=== PATIENT | female | born 1940 | race Caucasian/White ===

== ENCOUNTER 2016-03-28 14:18 | Emergency (ER) | payer MEDICARE ==
--- NOTE | 2016-03-28 14:58 | ER Document Report ---
ED Medical Screen (RME) - General Chief Complaint: Low Blood Pressure Stated Complaint: BLOOD PRESSURE PROBLEM Mode of Arrival: Wheelchair Information source: Patient Notes: 75-year-old female presents to the emergency department complaining of low blood pressure. Patient reports took her daily scheduled dose of verapamil and metoprolol earlier today. Reports noted blood pressure at home to be low with associated dizziness and upper abdominal pain. States called her tassel snipper and was referred to the ED. I have greeted and performed a rapid initial assessment of this patient. A comprehensive ED assessment and evaluation of the patient, analysis of test results and completion of the medical decision making process will be conducted by additional ED providers. TRAVEL OUTSIDE OF THE [place] IN LAST 30 DAYS: No - Related Data Allergies/Adverse Reactions: No Known Allergies Allergy (Verified 03/28/16 14:48) Past Medical History - Social History Chew tobacco use (# tins/day): No Frequency of alcohol use: Occasional Drug Abuse: None - Past Medical History Cardiac Medical History: Reports: Hx Hypertension, Hx Peripheral Vascular Disease - AAA, Hx Heart Murmur Denies: Hx Coronary Artery Disease, Hx Heart Attack Pulmonary Medical History: Denies: Hx Asthma, Hx Bronchitis, Hx COPD, Hx Pneumonia Neurological Medical History: Denies: Hx Cerebrovascular Accident, Hx Seizures Endocrine Medical History: Reports: Hx Diabetes Mellitus Type 1, Hx Diabetes Mellitus Type 2, Hx Hypothyroidism Renal/ Medical History: Denies: Hx Peritoneal Dialysis GI Medical History: Denies: Hx Hepatitis, Hx Hiatal Hernia, Hx Ulcer Musculoskeltal Medical History: Reports Hx Arthritis Infectious Medical History: Denies: Hx Hepatitis Past Surgical History: Denies: Hx Hysterectomy, Hx Mastectomy, Hx Open Heart Surgery, Hx Pacemaker - Immunizations Hx Diphtheria, Pertussis, Tetanus Vaccination: Yes Physical Exam - Vital signs Vitals: Temp Pulse Resp BP Pulse Ox 98.1 F 46 L 20 84/44 L 97 03/28/16 14:43 03/28/16 14:43 03/28/16 14:43 03/28/16 14:43 03/28/16 14:43 - General General appearance: Alert In distress: None - Respiratory Respiratory status: No respiratory distress - Neurological Neuro grossly intact: Yes Cognition: Normal Orientation: AAOx4 Priyank Coma Scale Eye Opening: Spontaneous Atkinson Coma Scale Verbal: Oriented Atkinson Coma Scale Motor: Obeys Commands Atkinson Coma Scale Total: 15 Speech: Normal Course - Vital Signs Vital signs: Temp Pulse Resp BP Pulse Ox 98.1 F 46 L 20 84/44 L 97 03/28/16 14:43 03/28/16 14:43 03/28/16 14:43 03/28/16 14:43 03/28/16 14:43
[2016-03-28 15:32] LABS: ABSOLUTE EOSINOPHILS # (AUTO) 0.5 10^3/uL (0.0-0.6); ABSOLUTE LYMPHOCYTES (AUTO) 0.8 10^3/uL (0.5-4.7); ABSOLUTE MONOCYTES (AUTO) 0.6 10^3/uL (0.1-1.4); ABSOLUTE NEUT (AUTO) 4.7 10^3/uL (1.7-8.2); BASOPHILS % (AUTO) 0.4 % (0-2); EOSINOPHILS % (AUTO) 7.1 % (0-6); HEMATOCRIT 29.8 % (36.0-47.0); HEMOGLOBIN 9.9 g/dL (12.0-15.5); HGB HCT DIFFERENCE -0.1; LYMPHOCYTES % (AUTO) 12.4 % (13-45); MEAN CORPUSCULAR HEMOGLOBIN 26.6 pg (27.0-33.4); MEAN CORPUSCULAR HGB CONC 33.1 g/dL (32.0-36.0); MEAN CORPUSCULAR VOLUME 80 fl (80-97); MONOCYTES % (AUTO) 9.3 % (3-13); RED BLOOD COUNT 3.71 10^6/uL (3.72-5.28); RED CELL DISTRIBUTION WIDTH 16.7 % (11.5-14.0); SEGMENTED NEUTROPHILS % (AUTO) 70.8 % (42-78); WHITE BLOOD COUNT 6.7 10^3/uL (4.0-10.5)
[2016-03-28 15:51] LABS: ALANINE AMINOTRANSFERASE 43 U/L (9-52); ALBUMIN 3.8 g/dL (3.5-5.0); ALKALINE PHOSPHATASE 97 U/L (38-126); ANION GAP 12 (5-19); ASPARTATE AMINO TRANSFERASE 52 U/L (14-36); BILIRUBIN,TOTAL 0.7 mg/dL (0.2-1.3); BLOOD UREA NITROGEN 25 mg/dL (7-20); CALCIUM 9.3 mg/dL (8.4-10.2); CARBON DIOXIDE 24 mmol/L (22-30); CHLORIDE 102 mmol/L (98-107); CREATINE KINASE 37 U/L (30-135); CREATININE RESULT 1.21 mg/dL (0.52-1.25); GLUCOSE 138 mg/dL (75-110); SODIUM 138.2 mmol/L (137-145); TOTAL PROTEIN 8.4 g/dL (6.3-8.2)
[2016-03-28 16:02] LABS: CREATINE KINASE MB 0.67 ng/mL (<4.55)
[2016-03-28 16:07] LABS: TROPONIN I < 0.012 ng/mL
--- NOTE | 2016-03-28 17:39 | ER Document Report ---
ED General - General Chief Complaint: Low Blood Pressure Stated Complaint: BLOOD PRESSURE PROBLEM Time seen by provider: 17:36 Mode of Arrival: Wheelchair Information source: Patient Notes: This is a 75-year-old female with a hypertension and hypothyroidism who presents to the emergency room after a near syncopal episode with a blood pressure that was low at home (60/47 with a heart rate at 47). Patient states that she's had a history of very high blood pressures and is currently on verapamil and metoprolol. She states that she took the medicine at 8:30 this morning together. She normally will take both of these medicines before eating on an empty stomach. She states that somewhere between noon and 1 PM, she felt dizzy and lightheaded, she checked her blood pressure and the blood pressure was 60/37 and the heart rate was 47. She decided to come to the emergency room. The patient denied any chest pain or shortness of breath. She denies any abdominal pain. Medical problems: Hypertension, hypothyroidism, known AAA (small at 3.7 cm: Just being followed at this point) Allergies: None TRAVEL OUTSIDE OF THE [place] IN LAST 30 DAYS: No - HPI Onset: This morning Onset/Duration: Gradual Quality of pain: No pain Severity: None Pain Level: Denies Associated symptoms: Weakness Exacerbated by: Denies Relieved by: Denies Similar symptoms previously: No Recently seen / treated by doctor: No - Related Data Allergies/Adverse Reactions: No Known Allergies Allergy (Verified 03/28/16 14:48) Past Medical History - General Information source: Patient - Social History Smoking Status: Never Smoker Cigarette use (# per day): No Chew tobacco use (# tins/day): No Frequency of alcohol use: Occasional Drug Abuse: None Lives with: Family Family History: Hypertension Patient has suicidal ideation: No Patient has homicidal ideation: No - Past Medical History Cardiac Medical History: Reports: Hx Hypertension, Hx Peripheral Vascular Disease - AAA, Hx Heart Murmur Denies: Hx Coronary Artery Disease, Hx Heart Attack Pulmonary Medical History: Denies: Hx Asthma, Hx Bronchitis, Hx COPD, Hx Pneumonia Neurological Medical History: Denies: Hx Cerebrovascular Accident, Hx Seizures Endocrine Medical History: Reports: Hx Diabetes Mellitus Type 1, Hx Diabetes Mellitus Type 2, Hx Hypothyroidism Renal/ Medical History: Denies: Hx Peritoneal Dialysis GI Medical History: Denies: Hx Hepatitis, Hx Hiatal Hernia, Hx Ulcer Musculoskeltal Medical History: Reports Hx Arthritis Infectious Medical History: Denies: Hx Hepatitis Past Surgical History: Denies: Hx Hysterectomy, Hx Mastectomy, Hx Open Heart Surgery, Hx Pacemaker - Immunizations Hx Diphtheria, Pertussis, Tetanus Vaccination: Yes Hx Pneumococcal Vaccination: 11/09/14 Review of Systems - Review of Systems Constitutional: denies: Chills, Fever EENT: No symptoms reported Cardiovascular: No symptoms reported Respiratory: No symptoms reported Gastrointestinal: No symptoms reported Genitourinary: No symptoms reported Female Genitourinary: No symptoms reported Musculoskeletal: No symptoms reported Skin: No symptoms reported Hematologic/Lymphatic: No symptoms reported Neurological/Psychological: See HPI Physical Exam - Vital signs Vitals: Temp Pulse Resp BP Pulse Ox 98.1 F 46 L 20 84/44 L 97 03/28/16 14:43 03/28/16 14:43 03/28/16 14:43 03/28/16 14:43 03/28/16 14:43 Notes: Physical exam: GENERAL: HEAD: Atraumatic, normocephalic. EYES: Pupils equal round and reactive to light, extraocular movements intact, sclera anicteric, conjunctiva are normal. ENT: TMs normal, nares patent, oropharynx clear without exudates. Moist mucous membranes. NECK: Normal range of motion, supple without lymphadenopathy or JVD. LUNGS: Breath sounds clear to auscultation bilaterally and equal. No wheezes rales or rhonchi. HEART: Regular rate and rhythm without murmurs, rubs or gallops. ABDOMEN: Soft, normoactive bowel sounds. No tenderness to palpation. No guarding, no rebound. No masses appreciated. EXTREMITIES: Normal range of motion, no pitting or edema. No clubbing or cyanosis. NEUROLOGICAL: Cranial nerves II through XII grossly intact. Normal speech, normal gait. PSYCH: Normal mood, normal affect. SKIN: Warm, Dry, normal turgor, no rashes or lesions noted. Course - Re-evaluation Re-evalutation: 03/28/16 20:45 I discussed case with who knows the patient well. The patient is on verapamil and metoprolol because of IHSS. He recommended taking the patient off for the metoprolol and continuing the verapamil daily in the morning and having the patient check her blood pressures and follow-up on Thursday. I discussed this with her, her and daughter were at the bedside and they 're happy with this plan. Advised her to return to the emergency room for any worsening dizziness and she will be monitoring her blood pressures. - Vital Signs Vital signs: Temp Pulse Resp BP Pulse Ox 98.6 F 61 18 152/61 H 97 03/28/16 18:50 03/28/16 18:50 03/28/16 18:50 03/28/16 18:50 03/28/16 18:50 - Laboratory Result Diagrams: 03/28/16 15:08 03/28/16 15:08 Laboratory results interpreted by me: 03/28/16 03/28/16 15:08 15:08 RBC 3.71 L Hgb 9.9 L Hct 29.8 L MCH 26.6 L RDW 16.7 H Plt Count 123 L Lymphocytes % 12.4 L Eosinophils % 7.1 H BUN 25 H Est GFR ( Amer) 53 L Est GFR (Non-Af Amer) 43 L Glucose 138 H AST 52 H Total Protein 8.4 H - Diagnostic Test Radiology reviewed: Image reviewed, Reports reviewed - Chest x-ray shows minimal atelectasis without infiltrate. Discharge - Discharge Clinical Impression: hypotension Condition: Stable Disposition: HOME, SELF-CARE Additional Instructions: Recommendations As we discussed, I would like you to hold off on taking metoprolol. Continue with the verapamil in the morning. Record your blood pressure for the next week: In the morning, in the afternoon and in the evening. Bring a copy of the recordings to Dr. Sanchez's office. You can let the journalists and other writers know that the ER doctor at spoken to and he wanted just seen in the office He wants to do call the office on Thursday so that you could get scheduled to be seen this coming week. Return to the emergency room for any abdominal pain, chest pain, worsening dizziness or further concerns regarding your blood pressure. Bring a copy of today's labs with you when you see .
--- NOTE | 2016-03-28 18:01 | EKG REPORT ---
SEVERITY:- ABNORMAL ECG - SINUS RHYTHM FIRST DEGREE AV BLOCK CONSIDER LEFT VENTRICULAR HYPERTROPHY : Confirmed by: Bryanna Sotelo 28-Mar-2016 18:00:20
[2016-03-28 19:11] VITALS: BP 152/61
== END 2016-03-28 18:55 | disposition home or self-care (01) ==
LOC: ER 14:18
DX: I95.9 Hypotension, unspecified (principal); R55 Syncope and collapse; E03.9 Hypothyroidism, unspecified; J98.11 Atelectasis; I10 Essential (primary) hypertension; I71.4 Abdominal aortic aneurysm, without rupture; R53.1 Weakness; Z79.899 Other long term (current) drug therapy; E11.9 Type 2 diabetes mellitus without complications
CPT/HCPCS: 36415; 71010; 80053; 82550; 82553; 84484; 85025; 93005; 93010; 99285

== ENCOUNTER → 2016-07-22 | Outpatient (CLI) | payer MEDICARE ==
[2016-07-22 09:31] LABS: CHOLESTEROL 182.01 mg/dL (0-200); Direct HDL 38 mg/dL (>40); TRIGLYCERIDES 119 mg/dL (<150)
[2016-07-22 09:41] LABS: DIRECT LDL 98 mg/dL (<100)
[2016-07-22 13:05] LABS: ANION GAP 10 (5-19); BLOOD UREA NITROGEN 19 mg/dL (7-20); CALCIUM 9.5 mg/dL (8.4-10.2); CARBON DIOXIDE 24 mmol/L (22-30); CHLORIDE 104 mmol/L (98-107); CREATININE RESULT 0.89 mg/dL (0.52-1.25); GLUCOSE 142 mg/dL (75-110); POTASSIUM 4.5 mmol/L (3.6-5.0); SODIUM 138.4 mmol/L (137-145)
== END ==
LOC: OD 08:22
PROVIDERS: ATTEND Internal Medicine Cardiovascular Disease
DX: Z79.899 Other long term (current) drug therapy (principal); R06.02 Shortness of breath; E03.9 Hypothyroidism, unspecified; E78.2 Mixed hyperlipidemia
CPT/HCPCS: 36415; 80048; 80061; 83880; 84443

== ENCOUNTER → 2018-03-16 | Outpatient (CLI) | payer MEDICARE, OTHER ==
[2018-03-16 11:35] LABS: HEMATOCRIT 38.4 % (36.0-47.0); HEMOGLOBIN 13.5 g/dL (12.0-15.5); MEAN CORPUSCULAR HEMOGLOBIN 31.3 pg (27.0-33.4); MEAN CORPUSCULAR HGB CONC 35.2 g/dL (32.0-36.0); MEAN CORPUSCULAR VOLUME 89 fl (80-97); PLATELET COUNT 120 10^3/uL (150-450); RED BLOOD COUNT 4.31 10^6/uL (3.72-5.28); RED CELL DISTRIBUTION WIDTH 15.2 % (11.5-14.0)
[2018-03-16 11:59] LABS: ALANINE AMINOTRANSFERASE 44 U/L (9-52); ALBUMIN 4.5 g/dL (3.5-5.0); ALKALINE PHOSPHATASE 95 U/L (38-126); ANION GAP 11 (5-19); ASPARTATE AMINO TRANSFERASE 59 U/L (14-36); BILIRUBIN,DIRECT 0.3 mg/dL (0.0-0.4); BLOOD UREA NITROGEN 16 mg/dL (7-20); CALCIUM 9.4 mg/dL (8.4-10.2); CARBON DIOXIDE 24 mmol/L (22-30); CHLORIDE 105 mmol/L (98-107); CHOLESTEROL 192.88 mg/dL (0-200); GLUCOSE 96 mg/dL (75-110); POTASSIUM 4.5 mmol/L (3.6-5.0); SODIUM 139.8 mmol/L (137-145); TOTAL PROTEIN 8.7 g/dL (6.3-8.2); TRIGLYCERIDES 246 mg/dL (<150)
[2018-03-16 12:09] LABS: DIRECT LDL 100 mg/dL (<100)
[2018-03-16 12:12] LABS: VLDL CHOLESTEROL 49.2 mg/dL (10-31)
== END ==
LOC: LAB 11:19
PROVIDERS: ATTEND Internal Medicine Cardiovascular Disease
DX: R06.02 Shortness of breath (principal); E78.2 Mixed hyperlipidemia; Z79.899 Other long term (current) drug therapy; L63.0 Alopecia (capitis) totalis
CPT/HCPCS: 36415; 80048; 80061; 80076; 83880; 84443; 85027

== ENCOUNTER → 2018-06-28 | Outpatient (CLI) | payer MEDICARE, OTHER ==
[2018-06-28 13:31] LABS: ALANINE AMINOTRANSFERASE 50 U/L (9-52); ALBUMIN 4.1 g/dL (3.5-5.0); ALKALINE PHOSPHATASE 123 U/L (38-126); ANION GAP 10 (5-19); ASPARTATE AMINO TRANSFERASE 50 U/L (14-36); BILIRUBIN,DIRECT 0.3 mg/dL (0.0-0.4); BILIRUBIN,TOTAL 0.9 mg/dL (0.2-1.3); BLOOD UREA NITROGEN 19 mg/dL (7-20); CALCIUM 9.6 mg/dL (8.4-10.2); CARBON DIOXIDE 24 mmol/L (22-30); CHLORIDE 105 mmol/L (98-107); GLUCOSE 84 mg/dL (75-110); POTASSIUM 4.1 mmol/L (3.6-5.0); SODIUM 138.6 mmol/L (137-145); TOTAL PROTEIN 8.2 g/dL (6.3-8.2)
== END ==
LOC: LAB 12:12
PROVIDERS: ATTEND Internal Medicine Cardiovascular Disease
DX: E03.9 Hypothyroidism, unspecified (principal); E08.6 Diabetes mellitus due to underlying condition with other specified complications; R94.5 Abnormal results of liver function studies; I10 Essential (primary) hypertension; R06.02 Shortness of breath; Z79.899 Other long term (current) drug therapy
CPT/HCPCS: 36415; 80048; 80076; 83036; 83880; 84443

== ENCOUNTER → 2018-11-05 | Outpatient (CLI) | payer MEDICARE, OTHER ==
[2018-11-05 12:39] LABS: ANION GAP 9 (5-19); BLOOD UREA NITROGEN 21 mg/dL (7-20); CARBON DIOXIDE 25 mmol/L (22-30); CHLORIDE 101 mmol/L (98-107); GLUCOSE 120 mg/dL (75-110); POTASSIUM 4.6 mmol/L (3.6-5.0)
== END ==
LOC: LAB 11:58
PROVIDERS: ATTEND Physician Assistant
DX: I10 Essential (primary) hypertension (principal); R06.02 Shortness of breath
CPT/HCPCS: 36415; 80048; 83880

== ENCOUNTER 2019-01-05 15:01 | Emergency (ER) | payer OTHER, MEDICARE ==
[2019-01-05] MEDS ORDERED: ACETAMINOPHEN 325 MG TABLET PO ONE (15:28)
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
[2019-01-05 16:07] VITALS: BP 154/59
== END 2019-01-05 16:07 | disposition home or self-care (01) ==
LOC: ER 15:01
DX: R07.81 Pleurodynia (principal); M54.5 Low back pain; V49.50XA Passenger injured in collision with unspecified motor vehicles in traffic accident, initial encounter; I10 Essential (primary) hypertension; E11.51 Type 2 diabetes mellitus with diabetic peripheral angiopathy without gangrene; Z96.652 Presence of left artificial knee joint; Z96.643 Presence of artificial hip joint, bilateral
CPT/HCPCS: 71046; 99283

== ENCOUNTER 2019-01-11 06:56 | Inpatient (IN) | payer MEDICARE, OTHER ==
[2019-01-11 07:35] LABS: ABSOLUTE BASOPHILS # (AUTO) 0.1 10^3/uL (0.0-0.2); ABSOLUTE MONOCYTES (AUTO) 0.8 10^3/uL (0.1-1.4); ABSOLUTE NEUT (AUTO) 6.6 10^3/uL (1.7-8.2); BASOPHILS % (AUTO) 0.6 % (0-2); EOSINOPHILS % (AUTO) 0.3 % (0-6); HEMATOCRIT 23.2 % (36.0-47.0); HEMOGLOBIN 8.2 g/dL (12.0-15.5); LYMPHOCYTES % (AUTO) 11.7 % (13-45); MEAN CORPUSCULAR HEMOGLOBIN 35.5 pg (27.0-33.4); MEAN CORPUSCULAR HGB CONC 35.4 g/dL (32.0-36.0); MEAN CORPUSCULAR VOLUME 101 fl (80-97); MONOCYTES % (AUTO) 9.6 % (3-13); PLATELET COUNT 167 10^3/uL (150-450); RED BLOOD COUNT 2.31 10^6/uL (3.72-5.28); RED CELL DISTRIBUTION WIDTH 15.9 % (11.5-14.0); SEGMENTED NEUTROPHILS % (AUTO) 77.8 % (42-78); TOTAL CELLS COUNTED % (AUTO) 100 %; WHITE BLOOD COUNT 8.5 10^3/uL (4.0-10.5)
[2019-01-11 07:41] LABS: ALBUMIN 3.3 g/dL (3.5-5.0); ALKALINE PHOSPHATASE 108 U/L (38-126); ANION GAP 12 (5-19); ASPARTATE AMINO TRANSFERASE 58 U/L (14-36); BILIRUBIN,DIRECT 0.2 mg/dL (0.0-0.4); BILIRUBIN,TOTAL 1.1 mg/dL (0.2-1.3); BLOOD UREA NITROGEN 38 mg/dL (7-20); CARBON DIOXIDE 21 mmol/L (22-30); CHLORIDE 103 mmol/L (98-107); GLUCOSE 208 mg/dL (75-110); POTASSIUM 4.5 mmol/L (3.6-5.0); TOTAL PROTEIN 7.4 g/dL (6.3-8.2)
--- NOTE | 2019-01-11 08:14 | ER Document Report ---
ED General - General Chief Complaint: GI Bleeding Stated Complaint: WEAKNESS Time Seen by Provider: 01/11/19 08:11 Mode of Arrival: Ambulatory TRAVEL OUTSIDE OF THE [place] IN LAST 30 DAYS: No - HPI Notes: 78-year-old female with a medical history of hypertension, hypothyroidism and diabetes presents to the emergency room for complaints of sudden onset melena approximately 9 hours ago. Patient reports she was taking baby aspirin, recently stopped taking it two days ago. Patient reports she does have a history of previous GI bleed approximately 1 year ago at [facility], she did receive a colonoscopy and endoscopy at that time. She states was transferred to [place] to have more invasive procedure due to [facility] not being able to find source of bleed. However, [place] could not find the source of bleed then however her GI bleed did resolve itself. Patient denies any new medications foods or travel. Denies any vomiting. denies fevers, chills, chest pain,palpitations, shortn ess of breath, dyspnea, nausea, vomiting abdominal pain, hematuria,blurred vision, double vision, loss of vision, speech changes, LH, dizziness, syncope, headaches, wheezing, ST, URI, neck pain, weakness, bowel or bladder dysfunction, saddle anesthesia, numbness or tingling in bilateral upper or lower extremities equally, muscle paralysis, weakness in bilateral upper or lower extremities equally or rash. - Related Data Allergies/Adverse Reactions: No Known Allergies Allergy (Verified 03/28/16 14:48) Past Medical History - General Information source: Patient, Relative - Social History Smoking Status: Former Smoker Family History: Hypertension Patient has suicidal ideation: No Patient has homicidal ideation: No - Past Medical History Cardiac Medical History: Reports: Hx Hypertension, Hx Peripheral Vascular Disease - AAA, Hx Heart Murmur Denies: Hx Coronary Artery Disease, Hx Heart Attack Pulmonary Medical History: Denies: Hx Asthma, Hx Bronchitis, Hx COPD, Hx Pneumonia Neurological Medical History: Denies: Hx Cerebrovascular Accident, Hx Seizures Endocrine Medical History: Reports: Hx Diabetes Mellitus Type 1, Hx Diabetes Mellitus Type 2, Hx Hypothyroidism Renal/ Medical History: Denies: Hx Peritoneal Dialysis GI Medical History: Denies: Hx Hepatitis, Hx Hiatal Hernia, Hx Ulcer Musculoskeletal Medical History: Reports Hx Arthritis Infectious Medical History: Denies: Hx Hepatitis Past Surgical History: Reports: Hx Orthopedic Surgery - double hip replacement. Denies: Hx Hysterectomy, Hx Mastectomy, Hx Open Heart Surgery, Hx Pacemaker - Immunizations Hx Diphtheria, Pertussis, Tetanus Vaccination: Yes Hx Pneumococcal Vaccination: 11/09/14 Review of Systems - Review of Systems Constitutional: See HPI EENT: No symptoms reported Cardiovascular: No symptoms reported Respiratory: No symptoms reported Gastrointestinal: See HPI Genitourinary: No symptoms reported Female Genitourinary: No symptoms reported Musculoskeletal: No symptoms reported Skin: No symptoms reported Hematologic/Lymphatic: No symptoms reported Neurological/Psychological: No symptoms reported Physical Exam - Vital signs Vitals: Resp 23 H 01/11/19 06:58 Interpretation: Tachycardic - Notes Notes: PHYSICAL EXAMINATION: reviewed vital signs by RN GENERAL: Well-appearing, well-nourished and in no mild distress. HEAD: Atraumatic, normocephalic. EYES: Pupils equal round and reactive to light, extraocular movements intact, conjunctiva are normal. ENT: Nares patent, oropharynx clear without exudates. Moist mucous membranes. NECK: Normal range of motion, supple without lymphadenopathy LUNGS: Breath sounds clear to auscultation bilaterally and equal. No wheezes rales or rhonchi. HEART: Regular rate and rhythm without murmurs ABDOMEN: Soft, nondistended abdomen. Generalized abdominal pain. No guarding, no rebound. No masses appreciated. no cva tenderness bilaterally Female : deferred Musculoskeletal: Normal range of motion, no pitting or edema. No cyanosis. NEUROLOGICAL: Cranial nerves grossly intact. Normal speech, normal gait. Normal sensory, motor exams PSYCH: Normal mood, normal affect. SKIN: Warm, Dry, normal turgor, no rashes or lesions noted. Course - Re-evaluation Re-evalutation: 01/11/19 09:37 Tachycardic afebrile in mild distress due to nausea. IV Zofran has been given. EKG negative for acute STEMI, no ST segment changes to previous EKG. CBC shows a hemoglobin of 8.2 and hematocrit of 23.2, patient does require a blood transfusion, patient's blood type is O Negative, patient is receiving IV hydration as well as started on a protonix drip. Chest x-ray negative for any acute findings, CMP unremarkable, troponin were negative, coags are normal. Patient remains tachycardic with heart rate 130s while receiving IV fluids. CT abdomen pelvis with IV and oral contrast (per request of robot programmer Dr. Garcia for oral at 0850) is pending. Did consult with Dr. Shannan Man, hospitalist, at 0930, he will accept patient to medical service. Pt will go to the stepdown ICU for further management of her anemia, lower GI bleed and blood transfusion. Dr. Garcia, robot programmer, will consult patient inpatient while hospitalist is managing her care. Patient is agreeable with admission and plan of care - Vital Signs Vital signs: Temp Pulse Resp BP Pulse Ox 98.6 F 121 H 20 145/68 H 98 01/11/19 07:04 01/11/19 07:04 01/11/19 10:01 01/11/19 10:01 01/11/19 10:01 - Laboratory Result Diagrams: 01/11/19 07:06 01/11/19 07:06 Laboratory results interpreted by me: 01/11/19 01/11/19 07:06 07:06 RBC 2.31 L Hgb 8.2 L Hct 23.2 L MCV 101 H MCH 35.5 H RDW 15.9 H Lymph % (Auto) 11.7 L Sodium 136.0 L Carbon Dioxide 21 L BUN 38 H Glucose 208 H AST 58 H Albumin 3.3 L Discharge - Discharge Clinical Impression: Acute blood loss anemia, Acute GI bleeding Condition: Stable Disposition: ADMITTED INPATIENT Admitting Provider: Demond (Hospitalist) Unit Admitted: [facility]
[2019-01-11] MEDS ORDERED: ONDANSETRON HCL INJ/PF 4 MG/2 ML SDV IV ONE (08:34)
[2019-01-11] MEDS ORDERED: NORMAL SALINE 1000 ML 1,000 ML IV ONE (08:36)
[2019-01-11 08:53] LABS: INTERNATIONAL RATION (INR) 1.14; PARTIAL THROMBOPLASTIN TIME 29.1 SEC (23.5-35.8); PROTHROMBIN TIME 14.7 SEC (11.4-15.4)
[2019-01-11 09:09] LABS: CREATINE KINASE MB 2.57 ng/mL (<4.55); TROPONIN I 0.012 ng/mL
--- NOTE | 2019-01-11 09:18 | RADIOLOGY REPORT (SQ) ---
EXAM DESCRIPTION: CHEST SINGLE VIEW COMPLETED DATE/TIME: 01/11/2019 9:09 am REASON FOR STUDY: tachycardia COMPARISON: None. EXAM PARAMETERS: NUMBER OF VIEWS: 01/05/2019 TECHNIQUE: Single frontal radiographic view of the chest acquired. RADIATION DOSE: NA LIMITATIONS: None. FINDINGS: LUNGS AND PLEURA: Persistent linear opacity in the left base most likely scar this is been present since 17. MEDIASTINUM AND HILAR STRUCTURES: No masses. Contour normal. HEART AND VASCULAR STRUCTURES: Heart normal in size. Normal vasculature. BONES: No acute findings. HARDWARE: None in the chest. OTHER: No other significant finding. IMPRESSION: NO ACUTE RADIOGRAPHIC FINDING IN THE CHEST. TECHNICAL DOCUMENTATION: JOB ID: [id number] [employer]- All Rights Reserved Reading location - IP/workstation name: [email or web address]
[2019-01-11] MEDS ORDERED: NORMAL SALINE 250 ML IV PRN ×2 (09:30)
[2019-01-11] MEDS: PANTOPRAZOLE SODIUM 40 MG VIAL IV PRN ×2 (10:33→23:45)
[2019-01-11] MEDS ORDERED: GLUCAGON,HUMAN RECOMB 1 MG INJ SUBCUT PRN (10:47)
[2019-01-11] MEDS ORDERED: DEXTROSE 40% GEL 15 GM TUBE PO PRN ×2 (10:47)
[2019-01-11] MEDS ORDERED: DEXTROSE 50%-WATER 25 GM/50 ML DISP.SYRIN IV PRN ×2 (10:47)
[2019-01-11 10:54] LABS: VENOUS BLOOD BASE EXCESS 1.1 mmol/L; VENOUS BLOOD HCO3 24.9 mmol/L (20-32); VENOUS BLOOD PCO2 35.5 mmHg (35-63); VENOUS BLOOD PH 7.46 (7.30-7.42)
--- NOTE | 2019-01-11 11:12 | PDOC H&P ---
History of Present Illness Admission Date/PCP: 01/11/19 09:41 TIMO JIMENEZ DO Patient complains of: Melena History of Present Illness: ISAÍAS GONZALEZ is a 78 year old female with a history of peptic ulcer disease, hypothyroidism, hypertension, who presents to the hospital with complaints of several episodes of melena and some hematochezia this morning. Patient denies any significant abdominal pain. Describes stool as dark tarry little bit of red blood. Denies any NSAID or steroid use. Had recent knee replacement surgery 3 weeks ago but has only been taking oxycodone and Tylenol for this. Of note, patient sees Dr. Garcia and had a upper endoscopy in July 2016 which showed persistent nonhealing gastric ulcer. Patient also reports having an upper and lo wer endoscopy done at [place] 2 years ago. Patient states no intervention was done but was discharged home with some antiacid medication. Patient currently endorses mild lightheadedness earlier but no longer as she is laying flat but denies shortness of breath, chest pain. Admits to some nausea. Past Medical History Cardiac Medical History: Reports: Hypertension, Peripheral Vascular Disease - AAA Denies: Coronary Artery Disease, Myocardial Infarction Pulmonary Medical History: Denies: Asthma, Chronic Obstructive Pulmonary Disease (COPD) Endocrine Medical History: Reports: Hypothyroidism GI Medical History: Denies: Hepatitis, Hiatal Hernia Musculoskeltal Medical History: Reports: Arthritis Hematology: Reports: Anemia Denies: Sickle Cell Disease Past Surgical History Past Surgical History: Reports: Orthopedic Surgery - double hip replacement Social History Information Source: Patient Lives with: Family Smoking Status: Former Smoker Frequency of Alcohol Use: Occasional Hx Recreational Drug Use: No Drugs: None - Advance Directive Resuscitation Status: Full Code Family History Family History: Hypertension Parental Family History Reviewed: Yes Children Family History Reviewed: NA Sibling(s) Family History Reviewed.: NA Medication/Allergy Home Medications: Levothyroxine Sodium [Synthroid 0.112 mg Tablet] 0.112 mg PO Q6AM 01/11/19 Metoprolol Succinate [Toprol Xl 50 mg Tab.sr] 50 mg PO NOON 01/11/19 Trazodone HCl [Desyrel] 100 mg PO QHS 01/11/19 Verapamil HCl [Verapamil ER] 240 mg PO DAILY 01/11/19 Allergies/Adverse Reactions: No Known Allergies Allergy (Verified 03/28/16 14:48) Review of Systems Constitutional: ABSENT: chills, fever(s) Eyes: ABSENT: visual disturbances Nose, Mouth, and Throat: ABSENT: headache(s) Cardiovascular: ABSENT: chest pain Respiratory: PRESENT: cough. ABSENT: dyspnea, hemoptysis Gastrointestinal: PRESENT: nausea. ABSENT: hematemesis Genitourinary: ABSENT: hematuria Musculoskeletal: PRESENT: joint swelling Integumentary: ABSENT: diaphoresis Neurological: ABSENT: confusion, syncope Psychiatric: ABSENT: anxiety Physical Exam Vital Signs: Temp Pulse Resp BP Pulse Ox 98.6 F 121 H 20 145/68 H 98 01/11/19 07:04 01/11/19 07:04 01/11/19 10:01 01/11/19 10:01 01/11/19 10:01 Intake & Output 01/10/19 01/11/19 01/12/19 06:59 06:59 06:59 Weight 77.111 kg General appearance: PRESENT: no acute distress, cooperative, other - Appears very fatigued Head exam: PRESENT: normocephalic Eye exam: PRESENT: conjunctiva pale Neck exam: ABSENT: JVD Respiratory exam: PRESENT: clear to auscultation wiliam, symmetrical, unlabored. ABSENT: tachypnea, wheezes Cardiovascular exam: PRESENT: +S1, +S2, tachycardia. ABSENT: irregular rhythm, systolic murmur Vascular exam: PRESENT: pallor GI/Abdominal exam: PRESENT: ascites, normal bowel sounds, soft, tenderness - Mildly tender. ABSENT: distended, firm, guarding, rebound, rigid Extremities exam: PRESENT: other - Trace lower extremity edema Neurological exam: PRESENT: alert, awake, oriented to person, oriented to place, oriented to time, oriented to situation Results Laboratory Results: 01/11/19 07:06 01/11/19 07:06 01/11/19 01/11/19 07:06 07:06 WBC 8.5 RBC 2.31 L Hgb 8.2 L Hct 23.2 L MCV 101 H MCH 35.5 H MCHC 35.4 RDW 15.9 H Plt Count 167 Seg Neutrophils % 77.8 Sodium 136.0 L Potassium 4.5 Chloride 103 Carbon Dioxide 21 L Anion Gap 12 BUN 38 H Creatinine 0.74 Est GFR ( Amer) > 60 Glucose 208 H Calcium 9.0 Total Bilirubin 1.1 AST 58 H Alkaline Phosphatase 108 Total Protein 7.4 Albumin 3.3 L Lipase 186.8 12/03/19 12/03/19 07:06 07:06 Creatine Kinase 64 CK-MB (CK-2) 2.57 Troponin I 0.012 Impressions: Chest X-Ray 01/11/19 08:39 IMPRESSION: NO ACUTE RADIOGRAPHIC FINDING IN THE CHEST. Assessment and Plan - Diagnosis (1) Acute GI bleeding Is this a current diagnosis for this admission?: Yes Plan: -Likely upper GI bleed and probably secondary to peptic ulcer disease which patient has a known history of -Dr. Garcia has been consulted for an upper endoscopy. -Patient already scheduled for CT abdomen pelvis with contrast -Orthostatic vitals every 4 hours -We will keep n.p.o. for now in case STAT endoscopy is needed -Maintain on Protonix drip (2) Acute blood loss anemia Is this a current diagnosis for this admission?: Yes Plan: -Secondary to upper GI bleed -Hemoglobin dropped from 13.5 in 03/2018 to 8.2 -Transfused 2 units of PRBC stat -Repeat CBC posttransfusion (3) Hypertension Is this a current diagnosis for this admission?: Yes Plan: -BP is currently elevated. We will resume antihypertensives but will monitor closely given patient is at risk of hypotension from hypovolemia. (4) Hypothyroid Is this a current diagnosis for this admission?: Yes Plan: -Continue with Synthroid (5) Tachycardia Is this a current diagnosis for this admission?: Yes Plan: -Secondary to hypovolemia from acute blood loss. -Cardiac monitoring. Will monitor response to IV fluids and blood transfusion. - Time Time Spent with patient: 35 or more minutes
[2019-01-11] MEDS ORDERED: INFLUENZA QUAD (6MOS+) 2019-20 VAC 0.5 ML SYR IM ONE (11:31)
[2019-01-11] MEDS ORDERED: ONDANSETRON HCL INJ/PF 4 MG/2 ML SDV IV PRN (11:44)
[2019-01-11] MEDS ORDERED: ONDANSETRON HCL INJ/PF 4 MG/2 ML SDV ONE ×2 (11:45→16:36)
[2019-01-11] MEDS: DEXTROSE 5%-1/2 NORMAL SALINE 1,000 ML IV PRN ×2 (12:05→23:46)
--- NOTE | 2019-01-11 13:32 | RADIOLOGY REPORT (SQ) ---
EXAM DESCRIPTION: CT ABD/PELVIS WITH IV ORAL COMPLETED DATE/TIME: 01/11/2019 1:04 pm REASON FOR STUDY: GI bleed, oral contrast per GI COMPARISON: None. TECHNIQUE: CT scan of the abdomen and pelvis performed using helical scanning technique with dynamic intravenous contrast injection. Oral contrast. Images reviewed with lung, soft tissue, and bone win dows. Reconstructed coronal and sagittal MPR images reviewed. Delayed images for evaluation of the ur inary system also acquired. All images stored on PACS. All CT scanners at this facility use dose modulation, iterative reconstruction, and/or weight based d osing when appropriate to reduce radiation dose to as low as reasonably achievable (ALARA). [facility]: Dose Right [facility]: CareDose [facility]: Dose Right [facility]: Teradose 4D [facility]: CareerImp CONTRAST TYPE AND DOSE: contrast/concentration: Isovue 350.00 mg/ml; Total Contrast Delivered: 88.0 ml; Total Saline Delivered: 70.0 ml RENAL FUNCTION: BUN 38 creatinine 0.74 RADIATION DOSE: CT Rad equipment meets quality standard of care and radiation dose reduction techniq ues were employed. CTDIvol: 9.6 - 9.6 mGy. DLP: 986 mGy-cm.. LIMITATIONS: Oral contrast precludes identification of intraluminal extravasation of intravenous con trast. FINDINGS: LOWER CHEST: No significant findings. No nodules or infiltrates. LIVER: Normal size. No masses. No dilated ducts. SPLEEN: Splenomegaly with a 13 cm cephalocaudal length. PANCREAS: No masses. No significant calcifications. No adjacent inflammation or peripancreatic fluid collections. Pancreatic duct not dilated. GALLBLADDER: Surgically absent. ADRENAL GLANDS: No significant masses or asymmetry. RIGHT KIDNEY AND URETER: No solid masses. No significant calcifications. No hydronephrosis or hyd roureter. LEFT KIDNEY AND URETER: No solid masses. No significant calcifications. No hydronephrosis or hydr oureter. AORTA AND VESSELS: No aortic aneurysm. 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 RETROPERITONEUM: No retroperitoneal adenopathy, hemorrhage or masses. BOWEL AND PERITONEAL CAVITY: Diverticulosis is distributed throughout the colon. No associated acute inflammation. APPENDIX: Not identified. PELVIS: Evaluation of the pelvis is limited by artifact from bilateral hip prostheses. No obvious pe lvic mass. Calcified uterine fibroid. ABDOMINAL WALL: No masses. No hernias. BONES: Bilateral hip arthroplasties. Degenerative disc disease. Scoliosis. OTHER: No other significant finding. IMPRESSION: 1. There is extensive diverticulosis coli. 2. No definite source of GI bleed is identified. See above. 3. Osseous findings as described. 4. Mild splenomegaly. 5. 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 TECHNICAL DOCUMENTATION: JOB ID: [id number] Quality ID # [id number]: Final reports with documentation of one or more dose reduction techniques (e.g., Au tomated exposure control, adjustment of the mA and/or kV according to patient size, use of iterative reconstruction technique) 2010 [employer]- All Rights Reserved Reading location - IP/workstation name: [email or web address]
--- NOTE | 2019-01-11 13:39 | PDOC CONSULTATION ---
Consultation Consult Date: 01/11/19 Provider Consulted: BETTY LORD Consult reason:: anemia and melena History of Present Illness Admission Date/PCP: 01/11/19 09:41 TIMO JIMENEZ DO History of Present Illness: ISAÍAS GONZALEZ is a 78 year old female patient seen in the past but is now following up with Dr Berry when she was last seen in 2016, patient noted to have persistent non healing gastric ulcer at one of her multiple EGD's she was noted to have H.Pylori it is unclear if she was ever treated she never came back to see me after 2015, but has been in the care of Dr Berry presently she presented with anemia and black stools she is admitted under the Hospitalist service, she will need a repeat EGD prior to that will need stabilization, ? transfusion along with PPI in the past she is a difficult patient for conscious sedation and will need to have Propofol will arrange to have it done in the OR Past Medical History Cardiac Medical History: Reports: Hypertension, Peripheral Vascular Disease - AAA, Heart Murmur Denies: Coronary Artery Disease, Myocardial Infarction Pulmonary Medical History: Denies: Asthma, Bronchitis, Chronic Obstructive Pulmonary Disease (COPD), Pneumonia Neurological Medical History: Denies: Seizures Endocrine Medical History: Reports: Diabetes Mellitus Type 1, Diabetes Mellitus Type 2, Hypothyroidism GI Medical History: Denies: Hepatitis, Hiatal Hernia Musculoskeltal Medical History: Reports: Arthritis Hematology: Reports: Anemia Denies: Sickle Cell Disease Past Surgical History Past Surgical History: Reports: Orthopedic Surgery - double hip replacement Denies: Amputation, Hysterectomy, Mastectomy, Pacemaker Social History Lives with: Family Smoking Status: Former Smoker Frequency of Alcohol Use: Occasional Hx Recreational Drug Use: No Drugs: None - Advance Directive Resuscitation Status: Full Code Family History Family History: Hypertension Parental Family History Reviewed: Yes Children Family History Reviewed: Unknown Sibling(s) Family History Reviewed.: Unknown Medication/Allergy Home Medications: Levothyroxine Sodium [Synthroid 0.112 mg Tablet] 0.112 mg PO Q6AM 01/11/19 Metoprolol Succinate [Toprol Xl 50 mg Tab.sr] 50 mg PO NOON 01/11/19 Trazodone HCl [Desyrel] 100 mg PO QHS 01/11/19 Verapamil HCl [Verapamil ER] 240 mg PO DAILY 01/11/19 Allergies/Adverse Reactions: No Known Allergies Allergy (Verified 03/28/16 14:48) Review of Systems Constitutional: ABSENT: fever(s), headache(s), night sweats, weakness Eyes: ABSENT: visual disturbances Ears: ABSENT: hearing changes Nose, Mouth, and Throat: ABSENT: sore throat Cardiovascular: ABSENT: orthropnea, palpitations Respiratory: ABSENT: dyspnea, hemoptysis Gastrointestinal: PRESENT: melena. ABSENT: hematochezia Genitourinary: ABSENT: dysuria, hematuria Musculoskeletal: ABSENT: deformity, joint swelling Integumentary: ABSENT: pruritus Neurological: ABSENT: syncope, tingling, tremor(s), vertigo Endocrine: ABSENT: polydipsia, polyphagia, polyuria Hematologic/Lymphatic: ABSENT: easy bruising Physical Exam Vital Signs: Temp Pulse Resp BP Pulse Ox 98.7 F 125 H 17 143/66 H 96 01/11/19 11:24 01/11/19 11:24 01/11/19 11:24 01/11/19 11:24 01/11/19 11:24 Intake & Output 01/10/19 01/11/19 01/12/19 06:59 06:59 06:59 Intake Total 1000 Balance 1000 Weight 79.7 kg General appearance: PRESENT: no acute distress, thin Head exam: PRESENT: atraumatic, normocephalic Eye exam: PRESENT: EOMI, PERRLA. ABSENT: nystagmus, periorbital swelling, scleral icterus Mouth exam: PRESENT: moist, neck supple Throat exam: ABSENT: tonsillar exudate, tonsillogmegaly Neck exam: ABSENT: meningismus, thyromegaly Respiratory exam: PRESENT: symmetrical. ABSENT: tachypnea, unlabored, wheezes Cardiovascular exam: PRESENT: RRR, +S1, +S2 GI/Abdominal exam: PRESENT: soft. ABSENT: rebound, rigid, tenderness Extremities exam: ABSENT: joint swelling Musculoskeletal exam: PRESENT: full ROM Neurological exam: PRESENT: oriented to time, oriented to situation, CN II-XII grossly intact Focused psych exam: ABSENT: restlessness Skin exam: PRESENT: normal color. ABSENT: mottled, urticaria, vesicles Results Laboratory Results: 01/11/19 07:06 01/11/19 07:06 01/11/19 01/11/19 01/11/19 07:06 07:06 10:35 WBC 8.5 RBC 2.31 L Hgb 8.2 L Hct 23.2 L MCV 101 H MCH 35.5 H MCHC 35.4 RDW 15.9 H Plt Count 167 Seg Neutrophils % 77.8 VBG pH VBG pCO2 VBG HCO3 VBG Base Excess Sodium 136.0 L Potassium 4.5 Chloride 103 Carbon Dioxide 21 L Anion Gap 12 BUN 38 H Creatinine 0.74 Est GFR ( Amer) > 60 Glucose 208 H Lactic Acid 1.7 Calcium 9.0 Total Bilirubin 1.1 AST 58 H Alkaline Phosphatase 108 Total Protein 7.4 Albumin 3.3 L Lipase 186.8 Blood Type Antibody Screen 01/11/19 01/11/19 10:35 10:35 WBC RBC Hgb Hct MCV MCH MCHC RDW Plt Count Seg Neutrophils % VBG pH 7.46 H VBG pCO2 35.5 VBG HCO3 24.9 VBG Base Excess 1.1 Sodium Potassium Chloride Carbon Dioxide Anion Gap BUN Creatinine Est GFR ( Amer) Glucose Lactic Acid Calcium Total Bilirubin AST Alkaline Phosphatase Total Protein Albumin Lipase Blood Type O NEGATIVE Antibody Screen NEGATIVE 01/11/19 01/11/19 07:06 07:06 Creatine Kinase 64 CK-MB (CK-2) 2.57 Troponin I 0.012 Impressions: Chest X-Ray 01/11/19 08:39 IMPRESSION: NO ACUTE RADIOGRAPHIC FINDING IN THE CHEST. Assessment & Plan - Diagnosis (1) GI bleed Qualifiers: GI bleed type/associated pathology: unspecified gastrointestinal hemorrhage type Qualified Code(s): K92.2 - Gastrointestinal hemorrhage, unspecified Plan: when previously seen , patient had a chronic non healing ulcer that was positive for H.pylori she is seeing another GI physician now as an outpatient she appears to have an upper GI bleeding with melena will need to have EGD done but with Propofol sedation will see if they can accomodate Risks, benefits and alternatives are discussed with the patient in detail further recommendations to follow - Time Time Spent: 50 to 70 Minutes
[2019-01-11] MEDS: METOPROLOL SUCCINATE 50 MG TAB.SR.24H PO SCH (14:01)
[2019-01-11] MEDS: INSULIN LISPRO 100 UNIT/ML 3 ML VIAL SUBCUT SCH ×2 (14:25→17:40)
[2019-01-11] MEDS ORDERED: FENTANYL CITRATE INJ/PF 100 MCG/2 ML AMPUL ONE (16:36)
[2019-01-11] MEDS ORDERED: DIPHENHYDRAMINE HCL 50 MG/ML VIAL ONE (16:36)
[2019-01-11] MEDS ORDERED: FLUMAZENIL INJ 0.5 MG/5 ML VIAL ONE (16:37)
[2019-01-11] MEDS ORDERED: NALOXONE HCL INJ/PF 0.4 MG/1 ML SDV ONE (16:37)
[2019-01-11] MEDS ORDERED: GLUCAGON,HUMAN RECOMB 1 MG INJ ONE (16:37)
[2019-01-11] MEDS ORDERED: EPINEPHRINE INJ 1 MG/10 ML DISP.SYRIN ONE (16:37)
[2019-01-11] MEDS: MIDAZOLAM 2 MG/2 ML INJ ONE ×2 (17:52→18:00)
--- NOTE | 2019-01-11 18:32 | PDOC CONSULTATION ---
Consultation Consult Date: 01/11/19 Provider Consulted: BARBARA ZUÑIGA History of Present Illness Admission Date/PCP: 01/11/19 09:41 TIMO JIMENEZ DO History of Present Illness: ISAÍAS GONZALEZ is a 78 year old female admitted last night with a sudden episode of melena/rectal bleeding at about 1 AM. She has had a few episodes while in the hospital. Her admission hemoglobin was 8.2 and she has since received 1 unit of blood. She denies abdominal pain but has some nausea with no vomiting. Her hemoglobin was 13 in March of this year though she was anemic back in 2016 when she was initially diagnosed with gastric ulcer. Previous colonoscopy in 2016 showed pancolonic diverticulosis. She denies use of NSAIDs. She had a knee surgery recently and has been taking oxycodone. I last saw her in 2016 for iron deficiency anemia. She had a capsule endoscopy in September 2016 that showed some fresh blood in the mid jejunum with no mucosal lesion. I referred her for push enteroscopy at [facility] and this did not yield any definite diagnosis. The EUS was performed for an abnormality noted in the stomach body EUS was unremarkable. Past Medical History Cardiac Medical History: Reports: Hypertension, Peripheral Vascular Disease - AAA, Heart Murmur Denies: Coronary Artery Disease, Myocardial Infarction Pulmonary Medical History: Denies: Asthma, Bronchitis, Chronic Obstructive Pulmonary Disease (COPD), Pneumonia Neurological Medical History: Denies: Seizures Endocrine Medical History: Reports: Diabetes Mellitus Type 1, Diabetes Mellitus Type 2, Hypothyroidism GI Medical History: Denies: Hepatitis, Hiatal Hernia GI History Note: Gastric ulcer, iron deficiency anemia, gastritis, Musculoskeltal Medical History: Reports: Arthritis Psychiatric Medical History: Reports: Depression Hematology: Reports: Anemia Denies: Sickle Cell Disease Past Surgical History Past Surgical History: Multiple EGDs in 2014, 2015 and 2016. Colonoscopy in 2015. Capsule endoscopy in September 2016, push enteroscopy and EUS in March 2017 at [facility] Past Surgical History: Reports: Orthopedic Surgery - double hip replacement Denies: Amputation, Hysterectomy, Mastectomy, Pacemaker Social History Lives with: Family Smoking Status: Former Smoker Frequency of Alcohol Use: Occasional Hx Recreational Drug Use: No Drugs: None - Advance Directive Resuscitation Status: Full Code Family History Family History: Hypertension Parental Family History Reviewed: No Children Family History Reviewed: NA Sibling(s) Family History Reviewed.: NA Medication/Allergy Home Medications: Levothyroxine Sodium [Synthroid 0.112 mg Tablet] 0.112 mg PO Q6AM 01/11/19 Metoprolol Succinate [Toprol Xl 50 mg Tab.sr] 50 mg PO NOON 01/11/19 Trazodone HCl [Desyrel] 100 mg PO QHS 01/11/19 Verapamil HCl [Verapamil ER] 240 mg PO DAILY 01/11/19 Allergies/Adverse Reactions: No Known Allergies Allergy (Verified 03/28/16 14:48) Review of Systems All systems: reviewed and no additional remarkable complaints except as stated Physical Exam Vital Signs: Temp Pulse Resp BP Pulse Ox 99.7 F 94 20 130/59 H 96 01/11/19 16:40 01/11/19 18:20 01/11/19 18:20 01/11/19 18:20 01/11/19 18:20 Intake & Output 01/10/19 01/11/19 01/12/19 06:59 06:59 06:59 Intake Total 1450 Output Total 600 Balance 850 Weight 79.7 kg Exam: General: Patient is alert and looks pale HEENT: There is no jaundice. PERRLA. Oropharynx normal Respiratory: No chest deformity. No respiratory distress. Chest wall palpitation was unremarkable. Breath sounds were normal Cardiovascular: Heart sounds 1 and 2 normal with no murmurs. Abdominal: Not distended. Soft and nontender. Liver and spleen not palpable. No ascites demonstrated. Bowel sounds active. Rectal examination was deferred. Extremities: No edema Neurological: Alert and oriented x4. Grossly nonfocal. Normal speech Skin: No significant rash Psychological: Normal affect Results Laboratory Results: 01/11/19 07:06 01/11/19 07:06 01/11/19 01/11/19 01/11/19 07:06 07:06 10:35 WBC 8.5 RBC 2.31 L Hgb 8.2 L Hct 23.2 L MCV 101 H MCH 35.5 H MCHC 35.4 RDW 15.9 H Plt Count 167 Seg Neutrophils % 77.8 VBG pH VBG pCO2 VBG HCO3 VBG Base Excess Sodium 136.0 L Potassium 4.5 Chloride 103 Carbon Dioxide 21 L Anion Gap 12 BUN 38 H Creatinine 0.74 Est GFR ( Amer) > 60 Glucose 208 H Lactic Acid 1.7 Calcium 9.0 Total Bilirubin 1.1 AST 58 H Alkaline Phosphatase 108 Total Protein 7.4 Albumin 3.3 L Lipase 186.8 Blood Type Antibody Screen 01/11/19 01/11/19 10:35 10:35 WBC RBC Hgb Hct MCV MCH MCHC RDW Plt Count Seg Neutrophils % VBG pH 7.46 H VBG pCO2 35.5 VBG HCO3 24.9 VBG Base Excess 1.1 Sodium Potassium Chloride Carbon Dioxide Anion Gap BUN Creatinine Est GFR ( Amer) Glucose Lactic Acid Calcium Total Bilirubin AST Alkaline Phosphatase Total Protein Albumin Lipase Blood Type O NEGATIVE Antibody Screen NEGATIVE 01/11/19 01/11/19 07:06 07:06 Creatine Kinase 64 CK-MB (CK-2) 2.57 Troponin I 0.012 Impressions: Chest X-Ray 01/11/19 08:39 IMPRESSION: NO ACUTE RADIOGRAPHIC FINDING IN THE CHEST. Abdomen/Pelvis CT 01/11/19 08:51 IMPRESSION: 1. There is extensive diverticulosis coli. 2. No definite source of GI bleed is identified. See above. 3. Osseous findings as described. 4. Mild splenomegaly. 5. 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 Assessment & Plan - Diagnosis (1) Acute GI bleeding Is this a current diagnosis for this admission?: Yes Plan: She was admitted with acute GI bleed with melena and rectal bleeding but no hematemesis. Differential diagnosis include peptic ulcer bleeding, stress gastritis, diverticular bleed, or neoplasm. She has not been on a PPI. She will undergo an EGD and a flexible sigmoidoscopy today. She is currently on IV Protonix. (2) Diverticulosis Is this a current diagnosis for this admission?: Yes (3) History of gastric ulcer Is this a current diagnosis for this admission?: Yes (4) Acute blood loss anemia Is this a current diagnosis for this admission?: Yes
--- NOTE | 2019-01-11 18:38 | Operative Report ---
Operative Report DATE OF SURGERY: 01/11/19 Operative Report: Pre-op diagnosis: GI bleed Post-op diagnosis: 1. Gastric antral ulcer with gastritis/erosions 2. Limited view of the rectosigmoid Surgery: Upper endoscopy, biopsy and flexible sigmoidoscopy Medications: Versed 2mg, Fentanyl 50mcg IV push Tissue removed: Gastric antral and body biopsy Procedure: After informed consent obtained from patient, patient's pharynx was sprayed with Hurricane and conscious sedation was achieved. The upper endoscope was then inserted into the esophagus under direct vision and advanced into the stomach and further into the duodenum. Detailed examination of the duodenum, stomach and the esophagus was then performed. A digital rectal examination was performed and this was unremarkable. The colonoscope was inserted into the rectum and advanced to the sigmoid colon. My view was very limited due to large amount of melanotic stool. Patient tolerated the procedure well. Findings Esophagus: Normal Stomach: 11 mm ulcer noted along the lesser curvature of the antrum with multiple areas of erythema and erosions noted in the antrum. There was no evidence for recent bleeding on the ulcer base and there was bile in the stomach and the duodenum. Sigmoid colon: Limited view Rectum: Limited view due to large amount of melena Plan: Continue IV Protonix and repeat EGD in 6 to 8 weeks to confirm healing. She should remain indefinitely on a PPI even after healing. I will do a colonoscopy tomorrow OPERATION: .
[2019-01-11] MEDS ORDERED: PEG 3350/NA SULF,BICARB,CL/KCL 4000 ML PO ONE (20:00)
[2019-01-11] MEDS ORDERED: BISACODYL 5 MG TABEC PO ONE (21:00)
[2019-01-12] MEDS: INSULIN LISPRO 100 UNIT/ML 3 ML VIAL SUBCUT SCH ×4 (00:12→17:13)
[2019-01-12 01:58] LABS: ABSOLUTE EOSINOPHILS # (AUTO) 0.1 10^3/uL (0.0-0.6); ABSOLUTE LYMPHOCYTES (AUTO) 1.4 10^3/uL (0.5-4.7); ABSOLUTE MONOCYTES (AUTO) 0.9 10^3/uL (0.1-1.4); ABSOLUTE NEUT (AUTO) 5.2 10^3/uL (1.7-8.2); BASOPHILS % (AUTO) 0.6 % (0-2); EOSINOPHILS % (AUTO) 1.3 % (0-6); HEMATOCRIT 26.1 % (36.0-47.0); HEMOGLOBIN 9.3 g/dL (12.0-15.5); LYMPHOCYTES % (AUTO) 18.1 % (13-45); MEAN CORPUSCULAR HEMOGLOBIN 32.4 pg (27.0-33.4); MEAN CORPUSCULAR HGB CONC 35.5 g/dL (32.0-36.0); MONOCYTES % (AUTO) 11.3 % (3-13); PLATELET COUNT 104 10^3/uL (150-450); RED BLOOD COUNT 2.87 10^6/uL (3.72-5.28); RED CELL DISTRIBUTION WIDTH 16.4 % (11.5-14.0); SEGMENTED NEUTROPHILS % (AUTO) 68.7 % (42-78); TOTAL CELLS COUNTED % (AUTO) 100 %; WHITE BLOOD COUNT 7.5 10^3/uL (4.0-10.5)
[2019-01-12 02:31] LABS: MEAN CORPUSCULAR VOLUME 91 fl (80-97)
[2019-01-12] MEDS: LEVOTHYROXINE SODIUM 0.112 MG TABLET PO SCH (05:43)
[2019-01-12] MEDS ORDERED: PEG 3350/NA SULF,BICARB,CL/KCL 4000 ML PO ONE (08:00)
[2019-01-12 08:34] LABS: HEMOGLOBIN 9.3 g/dL (12.0-15.5); MEAN CORPUSCULAR HEMOGLOBIN 32.6 pg (27.0-33.4); MEAN CORPUSCULAR HGB CONC 35.9 g/dL (32.0-36.0); MEAN CORPUSCULAR VOLUME 91 fl (80-97); RED BLOOD COUNT 2.85 10^6/uL (3.72-5.28); RED CELL DISTRIBUTION WIDTH 16.7 % (11.5-14.0); WHITE BLOOD COUNT 5.8 10^3/uL (4.0-10.5)
[2019-01-12 08:56] LABS: PLATELET COUNT 93 10^3/uL (150-450)
[2019-01-12 08:57] LABS: ANION GAP 7 (5-19); BLOOD UREA NITROGEN 17 mg/dL (7-20); CALCIUM 8.6 mg/dL (8.4-10.2); CARBON DIOXIDE 25 mmol/L (22-30); CHLORIDE 103 mmol/L (98-107); GLUCOSE 189 mg/dL (75-110); POTASSIUM 3.8 mmol/L (3.6-5.0)
[2019-01-12] MEDS: VERAPAMIL HCL 240 MG TABLET.SA PO SCH (10:02)
[2019-01-12] MEDS: DEXTROSE 5%-1/2 NORMAL SALINE 1,000 ML IV PRN ×2 (10:52→22:16)
--- NOTE | 2019-01-12 10:54 | PDOC PROGRESS REPORT ---
Subjective Progress Note for:: 01/12/19 Subjective:: Patient states that she was still feeling tired. He was able better than yesterday. States that she has been having runny stools since she started taking the GoLYTELY. Had some melena overnight. Denies abdominal pain or dizziness. Reason For Visit: GI BLEED Physical Exam Vital Signs: Temp Pulse Resp BP Pulse Ox 98.1 F 88 17 150/68 H 98 01/12/19 07:42 01/12/19 07:42 01/12/19 07:42 01/12/19 07:42 01/12/19 07:42 Intake & Output 01/11/19 01/12/19 01/13/19 06:59 06:59 06:59 Intake Total 2850 Output Total 600 Balance 2250 Weight 79.3 kg General appearance: PRESENT: no acute distress, cooperative Neck exam: ABSENT: JVD Respiratory exam: PRESENT: symmetrical, unlabored. ABSENT: tachypnea, wheezes Cardiovascular exam: PRESENT: RRR, +S1, +S2. ABSENT: tachycardia GI/Abdominal exam: PRESENT: normal bowel sounds, soft. ABSENT: distended, firm, guarding, rebound, rigid Neurological exam: PRESENT: alert, awake, oriented to person, oriented to place Results Laboratory Results: 01/12/19 08:16 01/12/19 08:16 01/11/19 01/11/19 01/11/19 10:35 10:35 10:35 WBC RBC Hgb Hct MCV MCH MCHC RDW Plt Count Seg Neutrophils % VBG pH 7.46 H VBG pCO2 35.5 VBG HCO3 24.9 VBG Base Excess 1.1 Sodium Potassium Chloride Carbon Dioxide Anion Gap BUN Creatinine Est GFR ( Amer) Glucose Lactic Acid 1.7 Calcium Magnesium Blood Type O NEGATIVE Antibody Screen NEGATIVE 01/12/19 01/12/19 01/12/19 01:44 08:16 08:16 WBC 7.5 5.8 RBC 2.87 L 2.85 L Hgb 9.3 L 9.3 L Hct 26.1 L 26.0 L MCV 91 D 91 MCH 32.4 32.6 MCHC 35.5 35.9 RDW 16.4 H 16.7 H Plt Count 104 L 93 L Seg Neutrophils % 68.7 VBG pH VBG pCO2 VBG HCO3 VBG Base Excess Sodium 134.7 L Potassium 3.8 Chloride 103 Carbon Dioxide 25 Anion Gap 7 BUN 17 Creatinine 0.68 Est GFR ( Amer) > 60 Glucose 189 H Lactic Acid Calcium 8.6 Magnesium 1.6 Blood Type Antibody Screen 01/11/19 01/11/19 07:06 07:06 Creatine Kinase 64 CK-MB (CK-2) 2.57 Troponin I 0.012 Impressions: Chest X-Ray 01/11/19 08:39 IMPRESSION: NO ACUTE RADIOGRAPHIC FINDING IN THE CHEST. Abdomen/Pelvis CT 01/11/19 08:51 IMPRESSION: 1. There is extensive diverticulosis coli. 2. No definite source of GI bleed is identified. See above. 3. Osseous findings as described. 4. Mild splenomegaly. 5. 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 Assessment and Plan - Diagnosis (1) Acute GI bleeding Is this a current diagnosis for this admission?: Yes Plan: -EGD done by yesterday which showed 11 mm stomach ulcer without evidence of recent bleed -CT abdomen pelvis showed no evidence of bleeding source but did show extensive diverticulosis -Orthostatic vitals every 4 hours -Maintain on n.p.o. for colonoscopy today -Maintain on Protonix drip (2) Acute blood loss anemia Is this a current diagnosis for this admission?: Yes Plan: -Secondary to GI bleed -Hemoglobin improved to 9.3 today. -We will continue to monitor CBC (3) Hypertension Is this a current diagnosis for this admission?: Yes Plan: -Continue with antihypertensives (4) Peptic ulcer disease Is this a current diagnosis for this admission?: Yes Plan: 11 mm nonbleeding ulcer noted in the stomach on EGD yesterday -Continue Protonix drip for now and will discharge patient on continued PPI (5) Hypothyroid Is this a current diagnosis for this admission?: Yes Plan: -Continue with Synthroid (6) Tachycardia Is this a current diagnosis for this admission?: Yes Plan: -Secondary to hypovolemia from acute blood loss. -Resolved following transfusion and IV fluid hydration. 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 Outpatient follow-up with PCP. (8) Hyperglycemia Is this a current diagnosis for this admission?: Yes Plan: Has been hypoglycemic since presentation. We will continue D5 NS as patient is n.p.o. till colonoscopy this evening but will decrease the rate. Check hemoglobin A1c. Continue sliding scale insulin and Accu-Cheks. - Time Time Spent with patient: Less than 15 minutes
[2019-01-12] MEDS: METOPROLOL SUCCINATE 50 MG TAB.SR.24H PO SCH (11:28)
[2019-01-12] MEDS: FENTANYL CITRATE INJ/PF 100 MCG/2 ML AMPUL ONE ×2 (17:05→18:48)
[2019-01-12] MEDS ORDERED: ONDANSETRON HCL INJ/PF 4 MG/2 ML SDV ONE (17:06)
[2019-01-12] MEDS ORDERED: DIPHENHYDRAMINE HCL 50 MG/ML VIAL ONE (17:06)
[2019-01-12] MEDS ORDERED: MIDAZOLAM 2 MG/2 ML INJ ONE (17:07)
[2019-01-12] MEDS ORDERED: EPINEPHRINE INJ 1 MG/10 ML DISP.SYRIN ONE (17:07)
[2019-01-12] MEDS ORDERED: GLUCAGON,HUMAN RECOMB 1 MG INJ ONE (17:07)
[2019-01-12] MEDS ORDERED: NALOXONE HCL INJ/PF 0.4 MG/1 ML SDV ONE (17:07)
[2019-01-12] MEDS ORDERED: FLUMAZENIL INJ 0.5 MG/5 ML VIAL ONE (17:07)
--- NOTE | 2019-01-12 19:16 | Operative Report ---
Operative Report DATE OF SURGERY: 01/12/19 Operative Report: Pre-op diagnosis: GI bleed Post-op diagnosis: 1. Pancolonic diverticulosis 2. Sigmoid colon polyp Surgery: Colonoscopy with polypectomy Medications: Versed 2mg, Fentanyl 100mcg IV push Tissue removed: Colon polyp Procedure: After informed consent obtained from patient, conscious sedation was achieved. A digital rectal examination was performed and this was unremarkable. The colonoscope was inserted into the rectum and advanced to the cecum. The appendiceal orifice and the terminal ileum were both identified. The mucosa was examined into details as the colonoscope was slowly pulled out of the patient. The endoscope was retroflexed in the rectum. Patient tolerated the procedure well. Findings There was yellow mucus all over the colon. Cecum: Normal Ascending colon: Multiple diverticuli Transverse colon: Few diverticuli Descending colon: Few diverticuli Sigmoid colon: Multiple diverticuli. 4 mm polyp removed with a cold snare Rectum: Normal except for internal hemorrhoids Plan: Await pathology. OPERATION: .
[2019-01-13] MEDS: INSULIN LISPRO 100 UNIT/ML 3 ML VIAL SUBCUT SCH ×4 (00:21→16:52)
[2019-01-13] MEDS: ACETAMINOPHEN 325 MG TABLET PO PRN ×2 (03:38→13:21)
[2019-01-13 04:53] LABS: HEMATOCRIT 23.7 % (36.0-47.0); HEMOGLOBIN 8.4 g/dL (12.0-15.5); MEAN CORPUSCULAR HEMOGLOBIN 31.9 pg (27.0-33.4); MEAN CORPUSCULAR HGB CONC 35.4 g/dL (32.0-36.0); MEAN CORPUSCULAR VOLUME 90 fl (80-97); RED BLOOD COUNT 2.63 10^6/uL (3.72-5.28); RED CELL DISTRIBUTION WIDTH 16.8 % (11.5-14.0)
[2019-01-13 05:14] LABS: ANION GAP 7 (5-19); BLOOD UREA NITROGEN 9 mg/dL (7-20); CALCIUM 8.3 mg/dL (8.4-10.2); CARBON DIOXIDE 24 mmol/L (22-30); CHLORIDE 102 mmol/L (98-107); GLUCOSE 196 mg/dL (75-110); POTASSIUM 3.4 mmol/L (3.6-5.0)
[2019-01-13 05:32] LABS: PLATELET COUNT 93 10^3/uL (150-450)
[2019-01-13] MEDS: LEVOTHYROXINE SODIUM 0.112 MG TABLET PO SCH (05:48)
[2019-01-13] MEDS ORDERED: POTASSIUM CHLORIDE 10 MEQ TABLET.ER PO ONE (08:00)
[2019-01-13] MEDS: VERAPAMIL HCL 240 MG TABLET.SA PO SCH (09:58)
[2019-01-13] MEDS: PANTOPRAZOLE SODIUM 40 MG TABLET.DR PO SCH ×2 (09:59→17:03)
[2019-01-13] MEDS: METOPROLOL SUCCINATE 50 MG TAB.SR.24H PO SCH (12:04)
[2019-01-13] MEDS: DEXTROSE 5%-1/2 NORMAL SALINE 1,000 ML IV PRN (12:07)
[2019-01-13] MEDS: GUAIFENESIN/D-METHORPHAN (200-20 MG) SYRUP 10 ML PO PRN ×2 (14:09→18:32)
[2019-01-13 17:02] LABS: HEMATOCRIT 25.9 % (36.0-47.0); HEMOGLOBIN 9.2 g/dL (12.0-15.5); MEAN CORPUSCULAR HEMOGLOBIN 33.1 pg (27.0-33.4); MEAN CORPUSCULAR HGB CONC 35.5 g/dL (32.0-36.0); MEAN CORPUSCULAR VOLUME 93 fl (80-97); PLATELET COUNT 149 10^3/uL (150-450); RED BLOOD COUNT 2.78 10^6/uL (3.72-5.28); RED CELL DISTRIBUTION WIDTH 16.2 % (11.5-14.0); WHITE BLOOD COUNT 9.3 10^3/uL (4.0-10.5)
[2019-01-13 18:53] VITALS: BP 141/59
--- NOTE | 2019-01-13 19:17 | PDOC DISCHARGE SUMMARY ---
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 Hemoglobin on admission was 8.3 which demonstrated a significant drop from recent measured levels. Patient was given 2 units of blood transfusion in the ER. 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 Zuñiga. She was taking for an EGD which revealed an 11 mm nonbleeding gastric ulcer. Yesterday she was taken for colonoscopy which revealed mann colonic diverticulosis as well as colonic polyps and polypectomy was performed. However there was no evidence of bleeding at the time. It is unclear what the exact cause of her GI bleed was but the possible culprits include peptic ulcer disease versus diverticulosis versus colonic polyps. She is scheduled to follow-up with Dr. Zuñiga in the clinic for further evaluation. She will be discharged home on Protonix twice daily 40 mg. Patient was also evaluated for hypoglycemia but her hemoglobin A1c was 5.7 indicating that she does not have diabetes. Patient's blood work was repeated today and hemoglobin level has been stable. - Additional Information Resuscitation Status: Full Code Discharge Diet: As Tolerated Discharge Activity: Activity As Tolerated Referrals: BARBARA ZUÑIGA MD [ACTIVE STAFF] - 01/17/19 10:00 am TIMO JIMENEZ DO [Primary Care Provider] - 01/17/19 1:30 pm Prescriptions: Pantoprazole Sodium [Protonix [address] Tablet] 40 mg PO BID #60 tablet.dr Home Medications: Levothyroxine Sodium [Synthroid 0.112 mg Tablet] 0.112 mg PO Q6AM 01/11/19 Metoprolol Succinate [Toprol Xl 50 mg Tab.sr] 50 mg PO NOON 01/11/19 Trazodone HCl [Desyrel] 100 mg PO QHS 01/11/19 Verapamil HCl [Verapamil ER] 240 mg PO DAILY 01/11/19 Pantoprazole Sodium [Protonix [address] Tablet] 40 mg PO BID #60 tablet.dr 01/13/19 History of Present Illiness History of Present Illness: ISAÍAS GONZALEZ is a 78 year old female with a history of peptic ulcer disease, hypothyroidism, hypertension, who presents to the hospital with complaints of se veral episodes of melena and some hematochezia this morning. Patient denies any significant abdominal pain. Describes stool as dark tarry little bit of red blood. Denies any NSAID or steroid use. Had recent knee replacement surgery 3 weeks ago but has only been taking oxycodone and Tylenol for this. Of note, patient sees Dr. Garcia and had a upper endoscopy in July 2016 which showed persistent nonhealing gastric ulcer. Patient also reports having an upper and lower endoscopy done at [facility] 2 years ago. Patient states no intervention was done but was discharged home with some antiacid medication. Patient currently endorses mild lightheadedness earlier but no longer as she is laying flat but denies shortness of breath, chest pain. Admits to some nausea. Physical Exam Vital Signs: Temp Pulse Resp BP Pulse Ox 98.2 F 68 18 141/59 H 95 01/13/19 18:46 01/13/19 18:46 01/13/19 18:46 01/13/19 18:46 01/13/19 18:46 Intake & Output 01/12/19 01/13/19 01/14/19 06:59 06:59 06:59 Intake Total 2850 1352 1120 Output Total 600 0 Balance 2250 1352 1120 Weight 79.3 kg 79.1 kg 79.1 kg General appearance: PRESENT: no acute distress, cooperative Respiratory exam: PRESENT: clear to auscultation wiliam. ABSENT: chest wall tenderness Cardiovascular exam: PRESENT: +S1, +S2 GI/Abdominal exam: PRESENT: normal bowel sounds. ABSENT: tenderness Results Laboratory Results: WBC 9.3 10^3/uL (4.0-10.5) 01/13/19 16:31 RBC 2.78 10^6/uL (3.72-5.28) L 01/13/19 16:31 Hgb 9.2 g/dL (12.0-15.5) L 01/13/19 16:31 Hct 25.9 % (36.0-47.0) L 01/13/19 16:31 MCV 93 fl (80-97) 01/13/19 16:31 MCH 33.1 pg (27.0-33.4) 01/13/19 16:31 MCHC 35.5 g/dL (32.0-36.0) 01/13/19 16:31 RDW 16.2 % (11.5-14.0) H 01/13/19 16:31 Plt Count 149 10^3/uL (150-450) L 01/13/19 16:31 Lymph % (Auto) 18.1 % (13-45) 01/12/19 01:44 Harney % (Auto) 11.3 % (3-13) 01/12/19 01:44 Eos % (Auto) 1.3 % (0-6) 01/12/19 01:44 Baso % (Auto) 0.6 % (0-2) 01/12/19 01:44 Absolute Neuts (auto) 5.2 10^3/uL (1.7-8.2) 01/12/19 01:44 Absolute Lymphs (auto) 1.4 10^3/uL (0.5-4.7) 01/12/19 01:44 Absolute Monos (auto) 0.9 10^3/uL (0.1-1.4) 01/12/19 01:44 Absolute Eos (auto) 0.1 10^3/uL (0.0-0.6) 01/12/19 01:44 Absolute Basos (auto) 0.0 10^3/uL (0.0-0.2) 01/12/19 01:44 Seg Neutrophils % 68.7 % (42-78) 01/12/19 01:44 PT 14.7 SEC (11.4-15.4) 01/11/19 07:06 INR 1.14 01/11/19 07:06 APTT 29.1 SEC (23.5-35.8) 01/11/19 07:06 VBG pH 7.46 (7.30-7.42) H 01/11/19 10:35 VBG pCO2 35.5 mmHg (35-63) 01/11/19 10:35 VBG HCO3 24.9 mmol/L (20-32) 01/11/19 10:35 VBG Base Excess 1.1 mmol/L 01/11/19 10:35 Sodium 133.1 mmol/L (137-145) L 01/13/19 04:41 Potassium 3.4 mmol/L (3.6-5.0) L 01/13/19 04:41 Chloride 102 mmol/L (98-107) 01/13/19 04:41 Carbon Dioxide 24 mmol/L (22-30) 01/13/19 04:41 Anion Gap 7 (5-19) 01/13/19 04:41 BUN 9 mg/dL (7-20) 01/13/19 04:41 Creatinine 0.68 mg/dL (0.52-1.25) 01/13/19 04:41 Est GFR ( Amer) > 60 (>60) 01/13/19 04:41 Est GFR (MDRD) Non-Af > 60 (>60) 01/13/19 04:41 Glucose 196 mg/dL (75-110) H 01/13/19 04:41 POC Glucose 189 mg/dL (70-110) H 01/13/19 16:40 Hemoglobin A1c % 5.7 % (4.7-6.0) 01/12/19 08:16 Lactic Acid 1.7 mmol/L (0.7-2.1) 01/11/19 10:35 Calcium 8.3 mg/dL (8.4-10.2) L 01/13/19 04:41 Magnesium 1.6 mg/dL (1.6-2.3) 01/12/19 08:16 Total Bilirubin 1.1 mg/dL (0.2-1.3) 01/11/19 07:06 Direct Bilirubin 0.2 mg/dL (0.0-0.4) 01/11/19 07:06 Neonat Total Bilirubin Not Reportable 01/11/19 07:06 Neonat Direct Bilirubin Not Reportable 01/11/19 07:06 Neonat Indirect Bili Not Reportable 01/11/19 07:06 AST 58 U/L (14-36) H 01/11/19 07:06 ALT 38 U/L (<35) 01/11/19 07:06 Alkaline Phosphatase 108 U/L (38-126) 01/11/19 07:06 Creatine Kinase 64 U/L (30-135) 01/11/19 07:06 CK-MB (CK-2) 2.57 ng/mL (<4.55) 01/11/19 07:06 Troponin I 0.012 ng/mL 01/11/19 07:06 Total Protein 7.4 g/dL (6.3-8.2) 01/11/19 07:06 Albumin 3.3 g/dL (3.5-5.0) L 01/11/19 07:06 Lipase 186.8 U/L (23-300) 01/11/19 07:06 Blood Type O NEGATIVE 01/11/19 10:35 Antibody Screen NEGATIVE 01/11/19 10:35 Crossmatch See Detail 01/11/19 10:35 01/11/19 07:06 CK-MB (CK-2) 2.57 Troponin I 0.012 Impressions: Chest X-Ray 01/11/19 08:39 IMPRESSION: NO ACUTE RADIOGRAPHIC FINDING IN THE CHEST. Abdomen/Pelvis CT 01/11/19 08:51 IMPRESSION: 1. There is extensive diverticulosis coli. 2. No definite source of GI bleed is identified. See above. 3. Osseous findings as described. 4. Mild splenomegaly. 5. 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 Plan Time Spent: Less than 30 Minutes Stroke Is this a Stroke Patient?: No Acute Heart Failure - Is this a Heart Failure Patient?: No
== END 2019-01-13 19:30 | disposition home or self-care (01) | DRG 378 ==
LOC: ER 06:56 → EH 09:41 → 3W 11:20
PROVIDERS: ADMIT Internal Medicine; ATTEND Internal Medicine
PROC: 0DB78ZX Excision of Stomach, Pylorus, Via Natural or Artificial Opening Endoscopic, Diagnostic (ICD-10-PCS; 2019-01-11)
PROC: 0DJD8ZZ Inspection of Lower Intestinal Tract, Via Natural or Artificial Opening Endoscopic (ICD-10-PCS; 2019-01-11)
PROC: 30233N1 Transfusion of Nonautologous Red Blood Cells into Peripheral Vein, Percutaneous Approach (ICD-10-PCS; 2019-01-11)
PROC: 0DB68ZX Excision of Stomach, Via Natural or Artificial Opening Endoscopic, Diagnostic (ICD-10-PCS; 2019-01-11 17:00)
PROC: 0DBN8ZX Excision of Sigmoid Colon, Via Natural or Artificial Opening Endoscopic, Diagnostic (ICD-10-PCS; principal; 2019-01-12 18:00)
DX: K92.1 Melena (principal); D62 Acute posthemorrhagic anemia; K25.9 Gastric ulcer, unspecified as acute or chronic, without hemorrhage or perforation; K29.60 Other gastritis without bleeding; K57.30 Diverticulosis of large intestine without perforation or abscess without bleeding; I10 Essential (primary) hypertension; I73.9 Peripheral vascular disease, unspecified; E11.65 Type 2 diabetes mellitus with hyperglycemia; Z96.643 Presence of artificial hip joint, bilateral; E03.9 Hypothyroidism, unspecified; I71.4 Abdominal aortic aneurysm, without rupture; E86.1 Hypovolemia; R00.0 Tachycardia, unspecified; Z87.11 Personal history of peptic ulcer disease; Z79.890 Hormone replacement therapy; Z87.891 Personal history of nicotine dependence
CPT/HCPCS: 36415; 36430; 43239; 45380; 71045; 74177; 80048; 80053; 82550; 82553; 82803; 82962; 83036; 83605; 83690; 83735; 84484; 85025; 85027; 85610; 85730; 86850; 86900; 86901; 86920; 88305; 88342; 96374; 99285; C9113; G0104; J0171; J1200; J1610; J1815; J2250; J2310; J2405; J3010; J3490; J7030; P9016

== ENCOUNTER → 2019-12-08 | Outpatient (CLI) | payer MEDICARE, OTHER ==
[2019-12-08 10:00] LABS: ALKALINE PHOSPHATASE 68 U/L (38-126); ANION GAP 9 (5-19); ASPARTATE AMINO TRANSFERASE 55 U/L (14-36); BILIRUBIN,DIRECT 0.1 mg/dL (0.0-0.4); BLOOD UREA NITROGEN 21 mg/dL (7-20); CALCIUM 9.4 mg/dL (8.4-10.2); CARBON DIOXIDE 24 mmol/L (22-30); CHLORIDE 106 mmol/L (98-107); CHOLESTEROL 182.16 mg/dL (0-200); GLUCOSE 156 mg/dL (75-110); POTASSIUM 4.6 mmol/L (3.6-5.0); TOTAL PROTEIN 8.1 g/dL (6.3-8.2); TRIGLYCERIDES 127 mg/dL (<150)
[2019-12-08 10:12] LABS: DIRECT LDL 114 mg/dL (<100)
[2019-12-08 17:05] LABS: FREE T3 4.01 pg/mL (2.77-5.27); FREE T4 (FREE THYROXINE) 1.85 ng/dL (0.78-2.19)
== END ==
LOC: OD 08:36
PROVIDERS: ATTEND Internal Medicine Cardiovascular Disease
DX: E03.9 Hypothyroidism, unspecified (principal); E78.2 Mixed hyperlipidemia; I10 Essential (primary) hypertension; R06.02 Shortness of breath; R42 Dizziness and giddiness; R00.2 Palpitations; Z79.899 Other long term (current) drug therapy
CPT/HCPCS: 36415; 80048; 80061; 80076; 83036; 83880; 84439; 84443; 84481

== ENCOUNTER → 2020-01-13 | Outpatient (CLI) | payer MEDICARE, OTHER ==
[2020-01-13 10:27] LABS: ANION GAP 6 (5-19); BLOOD UREA NITROGEN 23 mg/dL (7-20); CALCIUM 9.9 mg/dL (8.4-10.2); CARBON DIOXIDE 30 mmol/L (22-30); CHLORIDE 104 mmol/L (98-107); GLUCOSE 160 mg/dL (75-110); POTASSIUM 5.1 mmol/L (3.6-5.0)
== END ==
LOC: OD 08:30
PROVIDERS: ATTEND Internal Medicine Cardiovascular Disease
DX: I10 Essential (primary) hypertension (principal); E03.9 Hypothyroidism, unspecified; Z79.899 Other long term (current) drug therapy
CPT/HCPCS: 36415; 80048; 84443